=== PATIENT | male | born 1975 | race Caucasian/White ===

== ENCOUNTER 2018-11-12 12:53 | Emergency (ER) | payer MEDICAID ==
[~2018-11-12] VITALS: Ht 170.2 cm; Wt 74.8 kg
[2018-11-12 12:58] VITALS: BP 143/79
--- NOTE | 2018-11-12 13:11 | NUR ---
PT AMBULATED TO ER BED 08
--- NOTE | 2018-11-12 13:23 | NUR ---
PT BACK IN BED FROM X-RAY.
--- NOTE | 2018-11-12 13:25 | NUR ---
BIB SELF C/O OF LEFT KNEE PAIN 07/15. PT FELL AT HOME DOWN THE STAIRS. NO REDNESS OR DISCHARGE NOTED. SWELLING NOTED AROUND LEFT KNEE. DENIES LOC. DENIES N/V. AAOX4.
--- NOTE | 2018-11-12 14:32 | NUR ---
PT. RESTING COMFORTABLY IN BED , RR EVEN AND UNLABORED . FAMILY AT BEDSIDE. WILL CONTINUE TO MONITOR.
[2018-11-12 15:29] VITALS: BP 138/82
--- NOTE | 2018-11-12 15:29 | NUR ---
Patient discharged with v/s stable. Written and verbal after care instructions given and explained. Patient alert, oriented and verbalized understanding of instructions. Ambulatory with steady gait. All questions addressed prior to discharge. ID band removed. Patient advised to follow up with PMD. Rx of PERCOCET AND ZOFRAN given. Patient educated on indication of medication including possible reaction and side effects. Opportunity to ask questions provided and answered.
== END 2018-11-12 15:29 | disposition home or self-care (01) ==
LOC: MED 12:53
DX: S82.035A Nondisplaced transverse fracture of left patella, initial encounter for closed fracture (principal); M25.511 Pain in right shoulder; W01.198A Fall on same level from slipping, tripping and stumbling with subsequent striking against other object, initial encounter; Y93.01 Activity, walking, marching and hiking; Y92.098 Other place in other non-institutional residence as the place of occurrence of the external cause; Y99.8 Other external cause status
CPT/HCPCS: 29505; 73030; 73564; 99283